=== PATIENT | male | born 1990 | race Two or more races ===

== ENCOUNTER 2022-02-13 21:58 | Emergency (ER) | payer SELFPAY ==
[~2022-02-13] VITALS: Ht 177.8 cm; Wt 68.0 kg
[2022-02-13 22:18] VITALS: BP 128/76
[2022-02-13] MEDS ORDERED: SODIUM CHLORIDE 0.9% 1,000 ML IVB ONE (22:30)
== END 2022-02-13 23:38 | disposition left against medical advice (07) ==
LOC: EDBD 21:58 → ER 22:04
DX: F12.10 Cannabis abuse, uncomplicated (principal); F17.210 Nicotine dependence, cigarettes, uncomplicated; Z59.00 Homelessness unspecified; Z53.29 Procedure and treatment not carried out because of patient's decision for other reasons
CPT/HCPCS: 71045